=== PATIENT | female | born 1980 | race American Indian/Alaskan Native ===

== ENCOUNTER 2016-07-26 00:51 | Emergency (ER) | payer OTHER ==
[2016-07-26 02:38] LABS: Basophils % (Auto) 0.6 % (0.0-1.8); Eosinophils % (Auto) 1.1 % (0.0-4.3); Hematocrit 36.4 % (30.3-42.9); Hemoglobin 11.8 gm/dl (10.1-14.3); Mean Corpuscular HGB Conc 33 % (30-34); Mean Corpuscular Volume 78 fl (79-97); Platelet Count 250 K/mm3 (140-440); Red Blood Count 4.65 M/mm3 (3.65-5.03); Red Cell Distribution Width 15.4 % (13.2-15.2); White Blood Count 9.3 K/mm3 (4.5-11.0)
[2016-07-26 02:39] LABS: Mean Corpuscular Hemoglobin 25 pg (28-32)
[2016-07-26 02:54] LABS: Alanine Aminotransferase 13 units/L (7-56); Albumin 3.9 g/dL (3.9-5); Alkaline Phosphatase 128 units/L (35-129); Anion Gap 17 mmol/L; Bilirubin,Total 0.2 mg/dL (0.1-1.2); Blood Urea Nitrogen 16 mg/dL (7-17); Calcium 9.1 mg/dL (8.4-10.2); Carbon Dioxide 23 mmol/L (22-30); Chloride 102.8 mmol/L (98-107); Glucose 96 mg/dL (65-100); Lipase 37 units/L (13-60); Potassium 4.6 mmol/L (3.6-5.0); Sodium 138 mmol/L (137-145); Total Protein 7.7 g/dL (6.3-8.2)
[2016-07-26 03:01] LABS: Bacteria,Urine 1+ /HPF (Negative); Bilirubin,Urine NEG (Negative); Blood,Urine NEG (Negative); Ketones,Urine NEG (Negative); Leukocyte Esterase,Urine NEG (Negative); Mucus,Urine FEW /HPF; Nitrite,Urine NEG (Negative); Protein,Urine <15 mg/dL mg/dL (Negative)
[2016-07-26] MEDS ORDERED: NACL 0.9% 1000 ML 1,000 ML IV ONE (09:12)
--- NOTE | 2016-07-26 09:12 | Emergency Department Report ---
ED General Adult HPI - General Chief complaint: Weakness Stated complaint: DIZZINESS/ABD PAIN Time Seen by Provider: 07/26/16 08:59 Source: patient Mode of arrival: Ambulatory Limitations: No Limitations - History of Present Illness Initial comments: 35-year-old female presents to the emergency Department with multiple complaints. Patient states for the past one week she has been having generalized weakness with associated nausea. There has been no vomiting. Over the past 2 days the patient states that she has been feeling lightheaded, like she might pass out, when she stands up. There has been no loss of consciousness. Patient also began having sharp, intermittent lower abdominal pain yesterday. She states pain is located mostly in her left lower abdomen, but reports sharp right flank pain during urination. She denies dysuria or diarrhea. There are no other complaints. -: Gradual, week(s) (1) Location: abdomen Radiation: non-radiation Severity scale (0 -10): 5 Quality: sharp Consistency: intermittent Improves with: none Worsens with: none Associated Symptoms: nausea/vomiting (nausea only), weakness Treatments Prior to Arrival: none - Related Data Previous Rx's Medication Instructions Recorded Last Taken Type Docusate Sodium [Colace] 100 mg PO BID #30 capsule 07/26/16 Unknown Rx Allergies Allergy/AdvReac Type Severity Reaction Status Date / Time No Known Allergies Allergy Verified 07/26/16 10:15 ED Review of Systems ROS: Stated complaint: DIZZINESS/ABD PAIN Other details as noted in HPI Comment: All other systems reviewed and negative Constitutional: weakness Cardiovascular: syncope (lightheadedness, no loss of consciousness) Gastrointestinal: abdominal pain, nausea ED Past Medical Hx - Past Medical History Previous Medical History?: Yes Additional medical history: ANEMIA - Surgical History Past Surgical History?: Yes Additional Surgical History: C-SEC X 1 - Family History Family history: no significant - Social History Smoking Status: Never Smoker Substance Use Type: None - Medications Home Medications: Home Medications Medication Instructions Recorded Confirmed Last Taken Type Docusate Sodium [Colace] 100 mg PO BID #30 capsule 07/26/16 Unknown Rx ED Physical Exam - General Limitations: No Limitations General appearance: alert, in no apparent distress - Head Head exam: Present: atraumatic, normocephalic - Eye Eye exam: Present: normal appearance, PERRL, EOMI - ENT ENT exam: Present: normal exam, normal orophraynx, mucous membranes moist - Neck Neck exam: Present: normal inspection, full ROM. Absent: tenderness - Respiratory Respiratory exam: Present: normal lung sounds bilaterally. Absent: respiratory distress - Cardiovascular Cardiovascular Exam: Present: regular rate, normal rhythm, normal heart sounds - GI/Abdominal GI/Abdominal exam: Present: soft, normal bowel sounds. Absent: distended, tenderness - Extremities Exam Extremities exam: Present: normal inspection, full ROM. Absent: tenderness - Back Exam Back exam: Present: normal inspection, full ROM. Absent: tenderness - Neurological Exam Neurological exam: Present: alert, oriented X3. Absent: motor sensory deficit - Skin Skin exam: Present: warm, dry, intact ED Course Vital Signs 07/26/16 07/26/16 07/26/16 01:32 06:26 06:30 Temperature 98.7 F Pulse Rate 75 81 Respiratory 18 16 Rate Blood Pressure 125/83 138/75 Blood Pressure [Left] O2 Sat by Pulse 100 100 100 Oximetry 07/26/16 07/26/16 07/26/16 06:55 07:00 07:30 Temperature 98.0 F Pulse Rate 78 83 95 H Respiratory 17 18 20 Rate Blood Pressure 134/71 139/76 Blood Pressure 128/75 [Left] O2 Sat by Pulse 100 100 100 Oximetry 07/26/16 07/26/16 08:00 08:30 Temperature Pulse Rate 81 79 Respiratory 15 19 Rate Blood Pressure 127/70 123/72 Blood Pressure [Left] O2 Sat by Pulse 100 100 Oximetry ED Medical Decision Making - Lab Data Result diagrams: 07/26/16 02:19 07/26/16 02:19 - Radiology Data Radiology results: report reviewed, image reviewed CT of the abdomen and pelvis shows a contracted gallbladder and moderate amount of stool throughout the entire colon. There are no other acute abnormalities. - Medical Decision Making Lab and imaging results reviewed and discussed the patient. Patient will be discharged home at this time to follow up with her primary care physician. - Differential Diagnosis anemia, occult infection, dehydration, renal stone Critical care attestation.: If time is entered above; I have spent that time in minutes in the direct care of this critically ill patient, excluding procedure time. ED Disposition Clinical Impression: Abdominal pain Qualifiers: Abdominal location: lower abdomen, unspecified Qualified Code(s): R10.30 - Lower abdominal pain, unspecified Disposition: DISCHARGED TO HOME OR SELFCARE Is pt being admited?: No Condition: Stable Instructions: Constipation (ED) Prescriptions: Docusate Sodium [Colace] 100 mg PO BID #30 capsule Referrals: PRIMARY CARE, [Primary Care Provider] - 3-5 Days Time of Disposition: 11:37
[2016-07-26] MEDS ORDERED: NACL ONE (10:03)
--- NOTE | 2016-07-26 11:01 | Cat Scan Report ---
CT scan of abdomen and pelvis with IV contrast: History: Lower abdominal pain. Findings: Normal lung bases. No pleural or pericardial effusion. Normal liver spleen pancreas. Gallbladder appears contracted. Normal adrenals and kidney parenchyma and bladder. No free intraperitoneal fluid or air. No evidence of adenopathy. Normal aorta. Normal appendix. No evidence of diverticulitis or diverticulosis. Gaseous colon with moderate volume stool in entire colon. Impression: Contracted gallbladder. Moderate volume stool in colon.
[2016-07-26 12:01] VITALS: BP 128/79
== END 2016-07-26 12:07 | disposition home or self-care (01) ==
LOC: ED 00:51
DX: R10.30 Lower abdominal pain, unspecified (principal); D64.9 Anemia, unspecified
CPT/HCPCS: 36415; 74177; 80053; 81001; 81025; 83690; 85025; 96360; 99284; J7030; Q9967